=== PATIENT | male | born 1975 | race Two or more races ===

== ENCOUNTER 2019-05-07 20:29 | Emergency (ER) | payer MEDICAID, OTHER ==
[~2019-05-07] VITALS: Ht 162.6 cm; Wt 66.7 kg
[2019-05-08] MEDS ORDERED: FLUORESCEIN SOD 1 MG TEST STRIP RIGHTEYE ONE
[2019-05-08] MEDS ORDERED: TETRACAINE HCL 0.5% OPTH(EYE) SOLN 4ML RIGHTEYE ONE
[2019-05-08 00:10] VITALS: BP 136/86
== END 2019-05-08 00:46 | disposition home or self-care (01) ==
LOC: ER 20:31
DX: T15.02XA Foreign body in cornea, left eye, initial encounter (principal); H16.002 Unspecified corneal ulcer, left eye; H44.3 Other and unspecified degenerative disorders of globe; F17.210 Nicotine dependence, cigarettes, uncomplicated; X58.XXXA Exposure to other specified factors, initial encounter; Y93.89 Activity, other specified; Y92.89 Other specified places as the place of occurrence of the external cause; Y99.8 Other external cause status
CPT/HCPCS: 65222

== ENCOUNTER 2019-06-29 13:14 | Emergency (ER) | payer MEDICAID ==
[~2019-06-29] VITALS: Ht 167.6 cm; Wt 65.8 kg
[2019-06-29 13:24] VITALS: BP 111/71
[2019-06-29] MEDS ORDERED: TETRACAINE HCL 0.5% OPTH(EYE) SOLN 4ML EACHEYE ONE (14:00)
[2019-06-29] MEDS ORDERED: TETRACAINE HCL 0.5% OPTH(EYE) SOLN 4ML ONE (14:00)
[2019-06-29] MEDS ORDERED: CYCLOPENTOLATE HCL 1% OPTH(EYE) SOL 2ML EACHEYE ONE (14:00)
[2019-06-29] MEDS ORDERED: FLUORESCEIN SOD 1 MG TEST STRIP OP ONE (14:00)
== END 2019-06-29 14:22 | disposition home or self-care (01) ==
LOC: ER 13:14
DX: H16.133 Photokeratitis, bilateral (principal); F17.200 Nicotine dependence, unspecified, uncomplicated

== ENCOUNTER 2020-02-19 14:01 | Emergency (ER) | payer MEDICAID ==
[~2020-02-19] VITALS: Ht 167.6 cm; Wt 65.8 kg
[2020-02-19] MEDS ORDERED: FLUORESCEIN SOD 1 MG TEST STRIP LEFTEYE ONE (16:15)
[2020-02-19] MEDS ORDERED: TETRACAINE HCL 0.5% OPTH(EYE) SOLN 4ML LEFTEYE ONE (16:15)
[2020-02-19 16:39] VITALS: BP 127/86
== END 2020-02-19 16:44 | disposition home or self-care (01) ==
LOC: ER 14:01
DX: T15.02XA Foreign body in cornea, left eye, initial encounter (principal); F17.200 Nicotine dependence, unspecified, uncomplicated; X58.XXXA Exposure to other specified factors, initial encounter; Y93.89 Activity, other specified; Y92.89 Other specified places as the place of occurrence of the external cause; Y99.8 Other external cause status
CPT/HCPCS: 65222

== ENCOUNTER 2020-05-30 12:10 | Emergency (ER) | payer MEDICAID ==
[~2020-05-30] VITALS: Ht 165.1 cm; Wt 65.8 kg
[2020-05-30 13:36] LABS: Basophils # (auto) 0 10 ^3/uL (0-0.2); Basophils % (auto) 0.3 % (0.0-2.0); Eosinophils # (auto) 0.1 10 ^3/uL (0-0.8); Eosinophils % (auto) 0.8 % (0.0-7.0); Hematocrit 44.8 % (41.0-53.0); Hemoglobin 15.7 g/dL (13.5-17.5); Lymphocytes # (auto) 0.9 10 ^3/uL (0.4-5.4); Lymphocytes % (auto) 8.2 % (10.0-50.0); Mean Corpuscular Hemoglobin 32.9 pg (28.0-32.0); Mean Corpuscular Hgb Conc. 35.1 g/dL (32.0-36.0); Mean Corpuscular Volume 93.7 fL (80.0-100.0); Monocytes # (auto) 0.9 10 ^3/uL (0-1.3); Monocytes % (auto) 7.9 % (0.0-12.0); Neutrophils # (auto) 9.2 10 ^3/uL (1.6-8.6); Neutrophils % (auto) 82.8 % (37.0-80.0); Nucleated Red Blood Cells % 0.1 %; Platelet Count (auto) 313 10^3/uL (140-450); Red Blood Cells 4.78 10^6/uL (4.5-5.90); Red Cell Distribution Width 14.1 % (11.8-14.3); White Blood Cell 11.1 10^3/uL (4.4-10.8)
[2020-05-30 13:57] LABS: Calcium 9.6 mg/dL (8.5-10.1)
[2020-05-30 14:02] LABS: Bilirubin, Total 0.6 mg/dL (0.2-1.0); Total Protein 8.3 g/dL (6.4-8.2)
[2020-05-30] MEDS ORDERED: KETOROLAC TROMETH 60MG/2ML VIAL IM ONE (17:15)
[2020-05-30 18:05] VITALS: BP 158/92
== END 2020-05-30 18:10 | disposition home or self-care (01) ==
LOC: ER 12:10
DX: S39.012A Strain of muscle, fascia and tendon of lower back, initial encounter (principal); R16.0 Hepatomegaly, not elsewhere classified; K44.9 Diaphragmatic hernia without obstruction or gangrene; F10.10 Alcohol abuse, uncomplicated; X58.XXXA Exposure to other specified factors, initial encounter; Y93.89 Activity, other specified; Y92.89 Other specified places as the place of occurrence of the external cause; Y99.8 Other external cause status
CPT/HCPCS: 36415; 74176; 80053; 82150; 83690; 85025; 96372; 99284; J1885

== ENCOUNTER 2021-10-21 17:41 | Emergency (ER) | payer MEDICAID ==
[~2021-10-21] VITALS: Ht 162.6 cm; Wt 65.8 kg
[2021-10-21 18:10] VITALS: BP 110/83
== END 2021-10-22 00:01 | disposition home or self-care (01) ==
LOC: ER 17:41
DX: R06.00 Dyspnea, unspecified (principal); F15.10 Other stimulant abuse, uncomplicated; F17.210 Nicotine dependence, cigarettes, uncomplicated
CPT/HCPCS: 93005

== ENCOUNTER 2021-10-29 17:47 | Inpatient (IN) | payer MEDICAID ==
[~2021-10-29] VITALS: Ht 165.1 cm; Wt 66.4 kg
[2021-10-29] MEDS ORDERED: FUROSEMIDE 40 MG/4 ML VIAL IV ONE (19:15)
[2021-10-29 19:37] LABS: Basophils # (auto) 0 10 ^3/uL (0-0.2); Basophils % (auto) 0.4 % (0.0-2.0); Eosinophils # (auto) 0.1 10 ^3/uL (0-0.8); Eosinophils % (auto) 0.8 % (0.0-7.0); Hematocrit 46.1 % (41.0-53.0); Hemoglobin 14.7 g/dL (13.5-17.5); Lymphocytes # (auto) 0.9 10 ^3/uL (0.4-5.4); Lymphocytes % (auto) 11.3 % (10.0-50.0); Mean Corpuscular Hemoglobin 29.6 pg (28.0-32.0); Mean Corpuscular Hgb Conc. 31.9 g/dL (32.0-36.0); Mean Corpuscular Volume 92.9 fL (80.0-100.0); Monocytes # (auto) 0.7 10 ^3/uL (0-1.3); Monocytes % (auto) 8.1 % (0.0-12.0); Neutrophils # (auto) 6.6 10 ^3/uL (1.6-8.6); Neutrophils % (auto) 79.4 % (37.0-80.0); Red Blood Cells 4.96 10^6/uL (4.5-5.90); Red Cell Distribution Width 14.5 % (11.8-14.3); White Blood Cell 8.3 10^3/uL (4.4-10.8)
[2021-10-29 19:56] LABS: Albumin 3.2 g/dL (3.4-5.0); Calcium 8.7 mg/dL (8.5-10.1); Magnesium 2.3 mg/dL (1.6-2.6); Potassium 4.3 mmol/L (3.5-5.1)
[2021-10-29 20:00] LABS: BUN/Creatinine Ratio 15.7; Bilirubin, Total 0.9 mg/dL (0.2-1.0); Total Protein 7.5 g/dL (6.4-8.2)
[2021-10-29] MEDS ORDERED: IOHEXOL 350 MG/ML 100ML IJ ONE (20:27)
[2021-10-29] MEDS ORDERED: ONDANSETRON HCL 4 MG/2 ML VIAL IV PRN (22:30)
[2021-10-29] MEDS ORDERED: TEMAZEPAM 15 MG CAP PO PRN (22:30)
[2021-10-29] MEDS ORDERED: MORPHINE SULFATE INJ 2 MG/ml SYRG IV PRN (22:30)
[2021-10-29] MEDS ORDERED: NITROGLYCERIN 0.4 MG SL TAB SL PRN (22:30)
[2021-10-30] VITALS (8 sets, daily range): BP systolic 98–158; BP diastolic 64–92
[2021-10-30] MEDS: CARVEDILOL 3.125 MG TAB PO SCH ×3 (01:15→23:02)
[2021-10-30] MEDS: ATORVASTATIN 20 MG TAB PO SCH ×2 (01:15→23:04)
[2021-10-30 05:26] LABS: Basophils # (auto) 0 10 ^3/uL (0-0.2); Basophils % (auto) 0.4 % (0.0-2.0); Eosinophils # (auto) 0.1 10 ^3/uL (0-0.8); Eosinophils % (auto) 1.2 % (0.0-7.0); Hematocrit 40.9 % (41.0-53.0); Hemoglobin 13.3 g/dL (13.5-17.5); Lymphocytes # (auto) 0.8 10 ^3/uL (0.4-5.4); Lymphocytes % (auto) 11.6 % (10.0-50.0); Mean Corpuscular Hemoglobin 30.1 pg (28.0-32.0); Mean Corpuscular Hgb Conc. 32.5 g/dL (32.0-36.0); Mean Corpuscular Volume 92.5 fL (80.0-100.0); Monocytes # (auto) 0.6 10 ^3/uL (0-1.3); Monocytes % (auto) 9.3 % (0.0-12.0); Neutrophils # (auto) 5.3 10 ^3/uL (1.6-8.6); Neutrophils % (auto) 77.5 % (37.0-80.0); Red Blood Cells 4.42 10^6/uL (4.5-5.90); Red Cell Distribution Width 14.5 % (11.8-14.3); White Blood Cell 6.8 10^3/uL (4.4-10.8)
[2021-10-30 05:45] LABS: Albumin 2.7 g/dL (3.4-5.0); BUN/Creatinine Ratio 16.9; Calcium 7.9 mg/dL (8.5-10.1); Potassium 3.5 mmol/L (3.5-5.1)
[2021-10-30 05:47] LABS: Bilirubin, Total 0.7 mg/dL (0.2-1.0); Total Protein 6.3 g/dL (6.4-8.2)
[2021-10-30 05:52] LABS: Urine WBC None Seen /hpf (0 - 3)
[2021-10-30] MEDS ORDERED: FUROSEMIDE 20 MG TAB PO SCH (06:00)
[2021-10-30 06:32] LABS: Urine Bacteria FEW /hpf (None Seen); Urine Blood Negative /uL (Negative); Urine Specific Gravity 1.007 (1.001-1.035)
[2021-10-30] MEDS: PANTOPRAZOLE 40 MG TAB PO SCH (11:13)
[2021-10-30] MEDS: ASPirin 81 mg TAB PO SCH (11:13)
[2021-10-30] MEDS: ENOXAPARIN SOD 40 MG/0.4 ML SYRINGE SC SCH (11:13)
[2021-10-30] MEDS ORDERED: FUROSEMIDE 40 MG/4 ML VIAL IV ONE (11:30)
[2021-10-30 12:21] LABS: Cholesterol 99 mg/dL (< 200); HDL Cholesterol 33 mg/dL (40-59); LDL Cholesterol 65 mg/dL (< 100); Triglycerides 54 mg/dL (< 150)
[2021-10-30] MEDS: chlordiazePOXIDE HCL 25 MG CAP PO SCH ×3 (15:54→23:44)
[2021-10-30 17:16] LABS: Alcohol, Urine < 3.0 mg/dL (0-10); Amphetamine Screen, Urine NEGATIVE (NEGATIVE); Barbiturate Scree,Urine NEGATIVE (NEGATIVE); Benzodiazephine Screen, Urine NEGATIVE (NEGATIVE); Cannabinoid Screen, Urine NEGATIVE (NEGATIVE); Cocaine Screen, Urine NEGATIVE (NEGATIVE); Opiate Scree,Urine NEGATIVE (NEGATIVE); Phencyclidine Screen, Urine NEGATIVE (NEGATIVE)
[2021-10-30] MEDS: FUROSEMIDE 40 MG/4 ML VIAL IV SCH (18:00)
[2021-10-30] MEDS: FOLIC ACID 1 MG, MULTIPLE VITAMIN 10 ML, MAGNESIUM SULF SDV 50% 8 MEQ, THIAMINE INJ 100... INJ SCH ×5 (18:35)
[2021-10-31 05:00] VITALS: BP 108/70
[2021-10-31] MEDS: FUROSEMIDE 40 MG/4 ML VIAL IV SCH ×2 (06:33→18:00)
[2021-10-31] MEDS: chlordiazePOXIDE HCL 25 MG CAP PO SCH ×3 (06:35→18:14)
[2021-10-31 08:00] VITALS: BP 112/84
[2021-10-31 09:00] VITALS: BP 112/84
[2021-10-31] MEDS: ASPirin 81 mg TAB PO SCH (09:15)
[2021-10-31] MEDS: ENOXAPARIN SOD 40 MG/0.4 ML SYRINGE SC SCH (09:15)
[2021-10-31] MEDS: PANTOPRAZOLE 40 MG TAB PO SCH (09:15)
[2021-10-31] MEDS: CARVEDILOL 3.125 MG TAB PO SCH ×2 (09:15→21:53)
[2021-10-31] MEDS ORDERED: LISINOPRIL 20 MG TAB PO ONE (11:00)
[2021-10-31] MEDS: FOLIC ACID 1 MG, MULTIPLE VITAMIN 10 ML, MAGNESIUM SULF SDV 50% 8 MEQ, THIAMINE INJ 100... INJ SCH ×5 (12:36)
[2021-10-31 13:00] VITALS: BP 117/84
[2021-10-31 16:33] VITALS: BP 95/69
[2021-10-31 16:44] LABS: INR 1.26 (0.9-1.15); Partial Thromboplastin Time 29.1 sec (23.6-33.0)
[2021-10-31] MEDS: ATORVASTATIN 20 MG TAB PO SCH (21:53)
[2021-10-31 22:00] VITALS: BP 107/72
[2021-11-01] VITALS (11 sets, daily range): BP systolic 84–132; BP diastolic 60–89
[2021-11-01] MEDS: chlordiazePOXIDE HCL 25 MG CAP PO SCH ×5 (00:39→23:12)
[2021-11-01] MEDS: FUROSEMIDE 40 MG/4 ML VIAL IV SCH ×2 (05:53→18:15)
[2021-11-01] MEDS: ENOXAPARIN SOD 40 MG/0.4 ML SYRINGE SC SCH (08:15)
[2021-11-01] MEDS: ASPirin 81 mg TAB PO SCH (09:42)
[2021-11-01] MEDS: CARVEDILOL 3.125 MG TAB PO SCH ×2 (09:48→22:45)
[2021-11-01] MEDS: DAPAGLIFLOZIN 5 MG TAB PO SCH (09:49)
[2021-11-01] MEDS: LISINOPRIL 20 MG TAB PO SCH (09:50)
[2021-11-01] MEDS: PANTOPRAZOLE 40 MG TAB PO SCH (09:51)
[2021-11-01] MEDS: FOLIC ACID 1 MG, MULTIPLE VITAMIN 10 ML, MAGNESIUM SULF SDV 50% 8 MEQ, THIAMINE INJ 100... INJ SCH ×5 (12:00)
[2021-11-01] MEDS ORDERED: ANGIOMAX 250 MG VIAL IV ONE (15:14)
[2021-11-01] MEDS ORDERED: fentaNYL CITRATE 100 MCG/2 ML VL ONE (15:15)
[2021-11-01] MEDS ORDERED: MIDAZOLAM HCL 2MG/2ML 2ml VIAL (1mg/ml) ONE (15:15)
[2021-11-01] MEDS ORDERED: SODIUM CHL 0.9% 0 ML ONE (15:15)
[2021-11-01] MEDS ORDERED: LIDOCAINE 2%HCL (LOCAL ANESTH.) INJ 10ml MDV ONE (15:16)
[2021-11-01] MEDS ORDERED: DOBUTamine 1000MCG/ML 250 ML IV ONE (15:38)
[2021-11-01] MEDS ORDERED: ALBUMIN 5% 50 ML IV ONE ×2 (15:45→18:45)
[2021-11-01] MEDS: ALBUMIN 5% 50 ML IV ONE ×2 (15:45→20:33)
[2021-11-01] MEDS ORDERED: DOBUTamine 1000MCG/ML 250 ML IV SCH (15:45)
[2021-11-01] MEDS: ATORVASTATIN 20 MG TAB PO SCH (22:45)
[2021-11-01] MEDS: IVABRADINE 5 MG TAB PO SCH (22:45)
[2021-11-02 05:00] VITALS: BP 98/68
[2021-11-02] MEDS: FUROSEMIDE 40 MG/4 ML VIAL IV SCH ×2 (06:00→17:46)
[2021-11-02] MEDS: chlordiazePOXIDE HCL 25 MG CAP PO SCH ×3 (06:13→17:47)
[2021-11-02 07:30] VITALS: BP 99/71
[2021-11-02] MEDS: DAPAGLIFLOZIN 5 MG TAB PO SCH (08:23)
[2021-11-02] MEDS: ASPirin 81 mg TAB PO SCH (08:23)
[2021-11-02] MEDS: CARVEDILOL 3.125 MG TAB PO SCH ×2 (08:25→22:46)
[2021-11-02] MEDS: LISINOPRIL 20 MG TAB PO SCH (08:26)
[2021-11-02] MEDS: PANTOPRAZOLE 40 MG TAB PO SCH (08:26)
[2021-11-02] MEDS: IVABRADINE 5 MG TAB PO SCH (08:26)
[2021-11-02] MEDS: ENOXAPARIN SOD 40 MG/0.4 ML SYRINGE SC SCH (08:28)
[2021-11-02 09:08] VITALS: BP 99/71
[2021-11-02 13:00] VITALS: BP 100/76
[2021-11-02] MEDS: FOLIC ACID 1 MG, MULTIPLE VITAMIN 10 ML, MAGNESIUM SULF SDV 50% 8 MEQ, THIAMINE INJ 100... INJ SCH ×5 (13:36)
[2021-11-02 17:00] VITALS: BP 108/79
[2021-11-02 22:00] VITALS: BP 103/69
[2021-11-02] MEDS: ATORVASTATIN 20 MG TAB PO SCH (22:47)
[2021-11-03] MEDS: IVABRADINE 5 MG TAB PO SCH ×3 (00:03→22:21)
[2021-11-03] MEDS: chlordiazePOXIDE HCL 25 MG CAP PO SCH ×4 (00:49→18:22)
[2021-11-03 05:00] VITALS: BP 100/70
[2021-11-03] MEDS: FUROSEMIDE 40 MG/4 ML VIAL IV SCH ×2 (06:00→18:00)
[2021-11-03 08:00] VITALS: BP 105/76
[2021-11-03 09:00] VITALS: BP 105/76
[2021-11-03] MEDS: ASPirin 81 mg TAB PO SCH (10:13)
[2021-11-03] MEDS: PANTOPRAZOLE 40 MG TAB PO SCH (10:14)
[2021-11-03] MEDS: DAPAGLIFLOZIN 5 MG TAB PO SCH (10:14)
[2021-11-03] MEDS: LISINOPRIL 20 MG TAB PO SCH (10:15)
[2021-11-03] MEDS: ENOXAPARIN SOD 40 MG/0.4 ML SYRINGE SC SCH (10:16)
[2021-11-03] MEDS: CARVEDILOL 3.125 MG TAB PO SCH ×2 (10:24→22:21)
[2021-11-03] MEDS: FOLIC ACID 1 MG, MULTIPLE VITAMIN 10 ML, MAGNESIUM SULF SDV 50% 8 MEQ, THIAMINE INJ 100... INJ SCH ×5 (12:39)
[2021-11-03 13:00] VITALS: BP 97/57
[2021-11-03 17:00] VITALS: BP 96/69
[2021-11-03 21:37] VITALS: BP 120/86
[2021-11-03] MEDS: ATORVASTATIN 20 MG TAB PO SCH (22:21)
[2021-11-04] MEDS: chlordiazePOXIDE HCL 25 MG CAP PO SCH ×4 (00:26→16:37)
[2021-11-04 04:55] VITALS: BP 95/62
[2021-11-04] MEDS: FUROSEMIDE 40 MG/4 ML VIAL IV SCH ×2 (05:35→16:37)
[2021-11-04 09:00] VITALS: BP 100/67
[2021-11-04] MEDS: ASPirin 81 mg TAB PO SCH (10:01)
[2021-11-04] MEDS: CARVEDILOL 3.125 MG TAB PO SCH ×2 (10:02→22:43)
[2021-11-04] MEDS: DAPAGLIFLOZIN 5 MG TAB PO SCH (10:02)
[2021-11-04] MEDS: PANTOPRAZOLE 40 MG TAB PO SCH (10:02)
[2021-11-04] MEDS: LISINOPRIL 20 MG TAB PO SCH (10:03)
[2021-11-04] MEDS: ENOXAPARIN SOD 40 MG/0.4 ML SYRINGE SC SCH (10:03)
[2021-11-04] MEDS: IVABRADINE 5 MG TAB PO SCH ×2 (10:04→22:43)
[2021-11-04 13:00] VITALS: BP 110/72
[2021-11-04 17:00] VITALS: BP 109/79
[2021-11-04 22:00] VITALS: BP 111/82
[2021-11-04] MEDS: ATORVASTATIN 20 MG TAB PO SCH (22:43)
[2021-11-05] MEDS: chlordiazePOXIDE HCL 25 MG CAP PO SCH ×4 (00:15→17:34)
[2021-11-05 05:00] VITALS: BP 85/49
[2021-11-05] MEDS: FUROSEMIDE 40 MG/4 ML VIAL IV SCH ×2 (06:00→17:34)
[2021-11-05 09:00] VITALS: BP 110/62
[2021-11-05] MEDS: CARVEDILOL 3.125 MG TAB PO SCH ×2 (10:00→20:27)
[2021-11-05] MEDS: LISINOPRIL 20 MG TAB PO SCH (10:00)
[2021-11-05] MEDS: PANTOPRAZOLE 40 MG TAB PO SCH (10:25)
[2021-11-05] MEDS: IVABRADINE 5 MG TAB PO SCH ×2 (10:25→20:27)
[2021-11-05] MEDS: ASPirin 81 mg TAB PO SCH (10:25)
[2021-11-05] MEDS: DAPAGLIFLOZIN 5 MG TAB PO SCH (10:26)
[2021-11-05] MEDS: ENOXAPARIN SOD 40 MG/0.4 ML SYRINGE SC SCH (10:35)
[2021-11-05 13:00] VITALS: BP_SYST 101; BP_SYST 89; BP_DIAS 53; BP_DIAS 66
[2021-11-05 16:11] VITALS: BP 90/57
[2021-11-05] MEDS: ATORVASTATIN 20 MG TAB PO SCH (20:28)
[2021-11-05 22:16] VITALS: BP 93/61
[2021-11-06] MEDS: chlordiazePOXIDE HCL 25 MG CAP PO SCH ×4 (00:23→17:13)
[2021-11-06] MEDS: FUROSEMIDE 40 MG/4 ML VIAL IV SCH ×2 (05:01→17:12)
[2021-11-06 05:07] VITALS: BP 93/56
[2021-11-06] MEDS: ACETAMINOPHEN 325 MG TAB PO PRN (07:13)
[2021-11-06 07:51] LABS: Basophils # (auto) 0.1 10 ^3/uL (0-0.2); Basophils % (auto) 0.7 % (0.0-2.0); Eosinophils # (auto) 0.2 10 ^3/uL (0-0.8); Eosinophils % (auto) 2.8 % (0.0-7.0); Hematocrit 45.3 % (41.0-53.0); Hemoglobin 14.7 g/dL (13.5-17.5); Lymphocytes # (auto) 0.8 10 ^3/uL (0.4-5.4); Lymphocytes % (auto) 12.2 % (10.0-50.0); Mean Corpuscular Hemoglobin 29.5 pg (28.0-32.0); Mean Corpuscular Hgb Conc. 32.4 g/dL (32.0-36.0); Mean Corpuscular Volume 91.1 fL (80.0-100.0); Monocytes # (auto) 0.9 10 ^3/uL (0-1.3); Monocytes % (auto) 12.9 % (0.0-12.0); Neutrophils # (auto) 4.9 10 ^3/uL (1.6-8.6); Neutrophils % (auto) 71.4 % (37.0-80.0); Red Blood Cells 4.97 10^6/uL (4.5-5.90); Red Cell Distribution Width 14.8 % (11.8-14.3); White Blood Cell 6.9 10^3/uL (4.4-10.8)
[2021-11-06 08:07] LABS: Albumin 3.4 g/dL (3.4-5.0); Calcium 9.2 mg/dL (8.5-10.1); Potassium 4.1 mmol/L (3.5-5.1)
[2021-11-06 08:10] LABS: Bilirubin, Total 0.4 mg/dL (0.2-1.0); Total Protein 7.4 g/dL (6.4-8.2)
[2021-11-06 08:14] LABS: INR 1.18 (0.9-1.15); Partial Thromboplastin Time 28.8 sec (23.6-33.0)
[2021-11-06 09:00] VITALS: BP 93/49
[2021-11-06] MEDS: ENOXAPARIN SOD 40 MG/0.4 ML SYRINGE SC SCH (10:00)
[2021-11-06] MEDS: CARVEDILOL 3.125 MG TAB PO SCH ×2 (10:00→21:09)
[2021-11-06] MEDS: LISINOPRIL 20 MG TAB PO SCH (10:00)
[2021-11-06] MEDS: ASPirin 81 mg TAB PO SCH (10:02)
[2021-11-06] MEDS: IVABRADINE 5 MG TAB PO SCH ×2 (10:04→21:09)
[2021-11-06] MEDS: DAPAGLIFLOZIN 5 MG TAB PO SCH (10:08)
[2021-11-06] MEDS: PANTOPRAZOLE 40 MG TAB PO SCH (10:08)
[2021-11-06] MEDS: FOLIC ACID 1 MG, MULTIPLE VITAMIN 10 ML, MAGNESIUM SULF SDV 50% 8 MEQ, THIAMINE INJ 100... INJ SCH ×10 (12:00→19:00)
[2021-11-06] MEDS ORDERED: VANCOMYCIN HCL 1000 MG VL ONE ×2 (13:48→14:18)
[2021-11-06] MEDS ORDERED: fentaNYL CITRATE 100 MCG/2 ML VL ONE (13:48)
[2021-11-06] MEDS ORDERED: LIDOCAINE 2%HCL (LOCAL ANESTH.) INJ 10ml MDV ONE (13:49)
[2021-11-06] MEDS ORDERED: MIDAZOLAM HCL 2MG/2ML 2ml VIAL (1mg/ml) ONE (13:49)
[2021-11-06] MEDS ORDERED: VANCOMYCIN 1GM/250ML 250 ML IV ONE (14:24)
[2021-11-06] MEDS ORDERED: FUROSEMIDE 20 MG/2 ML VIAL ONE (15:25)
[2021-11-06 17:00] VITALS: BP 104/78
[2021-11-06 20:00] VITALS: BP 106/64
[2021-11-06 20:30] VITALS: BP 104/78
[2021-11-06] MEDS: ATORVASTATIN 20 MG TAB PO SCH (21:09)
[2021-11-06 21:50] VITALS: BP 95/67
[2021-11-06] MEDS: VANCOMYCIN 1GM/250ML 250 ML IV SCH (21:57)
[2021-11-07] MEDS: FUROSEMIDE 40 MG/4 ML VIAL IV SCH (04:38)
[2021-11-07 05:00] VITALS: BP 92/54
[2021-11-07] MEDS: chlordiazePOXIDE HCL 25 MG CAP PO SCH ×3 (06:00→12:00)
[2021-11-07] MEDS: VANCOMYCIN 1GM/250ML 250 ML IV SCH (08:26)
[2021-11-07] MEDS: PANTOPRAZOLE 40 MG TAB PO SCH (08:26)
[2021-11-07] MEDS: DAPAGLIFLOZIN 5 MG TAB PO SCH (08:26)
[2021-11-07] MEDS: ASPirin 81 mg TAB PO SCH (08:26)
[2021-11-07 08:35] VITALS: BP 100/58
[2021-11-07] MEDS: ACETAMINOPHEN 325 MG TAB PO PRN (09:19)
[2021-11-07] MEDS: IVABRADINE 5 MG TAB PO SCH (09:19)
[2021-11-07] MEDS: ENOXAPARIN SOD 40 MG/0.4 ML SYRINGE SC SCH (09:22)
[2021-11-07] MEDS: CARVEDILOL 3.125 MG TAB PO SCH (09:22)
[2021-11-07] MEDS: LISINOPRIL 20 MG TAB PO SCH (09:22)
[2021-11-07] MEDS ORDERED: ASPI-498 PO (10:32)
[2021-11-07] MEDS ORDERED: POTA10TA51 PO (10:32)
[2021-11-07] MEDS ORDERED: DAPA1TAB4 PO (10:32)
[2021-11-07] MEDS ORDERED: FURO1TAB31 PO (10:32)
[2021-11-07] MEDS ORDERED: CAR3125T PO (10:32)
[2021-11-07] MEDS ORDERED: IVAB1.7T PO (10:32)
[2021-11-07] MEDS ORDERED: LISI-716 PO (10:32)
[2021-11-07 11:23] VITALS: BP 100/58
[2021-11-07] MEDS: FOLIC ACID 1 MG, MULTIPLE VITAMIN 10 ML, MAGNESIUM SULF SDV 50% 8 MEQ, THIAMINE INJ 100... INJ SCH ×5 (12:00)
[2021-11-07 12:46] VITALS: BP 101/69
== END 2021-11-07 14:00 | disposition home or self-care (01) | DRG 179 ==
LOC: ER 17:47 → TELE 22:27 → TELE-WESTW 23:46
PROVIDERS: ADMIT Nurse Practitioner; ATTEND Family Medicine
PROC: 4A023N7 Measurement of Cardiac Sampling and Pressure, Left Heart, Percutaneous Approach (ICD-10-PCS; 2021-11-05)
PROC: B2111ZZ Fluoroscopy of Multiple Coronary Arteries using Low Osmolar Contrast (ICD-10-PCS; 2021-11-05)
PROC: B2151ZZ Fluoroscopy of Left Heart using Low Osmolar Contrast (ICD-10-PCS; 2021-11-05)
PROC: B41F1ZZ Fluoroscopy of Right Lower Extremity Arteries using Low Osmolar Contrast (ICD-10-PCS; 2021-11-05)
PROC: 02H63KZ Insertion of Defibrillator Lead into Right Atrium, Percutaneous Approach (ICD-10-PCS; principal; 2021-11-06)
PROC: 0JH609Z Insertion of Cardiac Resynchronization Defibrillator Pulse Generator into Chest Subcutaneous Tissue and Fascia, Open Approach (ICD-10-PCS; 2021-11-06)
PROC: 02HL3KZ Insertion of Defibrillator Lead into Left Ventricle, Percutaneous Approach (ICD-10-PCS; 2021-11-06)
PROC: 02HK3KZ Insertion of Defibrillator Lead into Right Ventricle, Percutaneous Approach (ICD-10-PCS; 2021-11-06)
DX: I11.0 Hypertensive heart disease with heart failure (principal); J96.01 Acute respiratory failure with hypoxia; J18.9 Pneumonia, unspecified organism; I42.0 Dilated cardiomyopathy; I45.89 Other specified conduction disorders; I50.43 Acute on chronic combined systolic (congestive) and diastolic (congestive) heart failure; F15.10 Other stimulant abuse, uncomplicated; F17.210 Nicotine dependence, cigarettes, uncomplicated; Z20.822 Contact with and (suspected) exposure to COVID-19; F10.10 Alcohol abuse, uncomplicated; Y90.9 Presence of alcohol in blood, level not specified; Z71.41 Alcohol abuse counseling and surveillance of alcoholic
CPT/HCPCS: 33225; 33249; 36415; 71045; 71046; 71275; 75710; 80053; 80061; 80307; 81001; 83605; 83735; 83880; 84484; 85025; 85379; 85610; 85730; 86850; 86900; 86901; 87040; 93005; 93306; 93458; 93970; 96374; 99152; 99153; 99291; C1882; G0378; J2001; J2250

== ENCOUNTER → 2022-05-26 | Outpatient (CLI) | payer MEDICAID ==
[~2022-05-26] MED LIST: ASPI-498 PO; CAR3125T PO; DAPA1TAB4 PO; FURO1TAB31 PO; IVAB1.7T PO; LISI-716 PO; POTA10TA51 PO
== END | disposition home or self-care (01) ==
LOC: Rad HDHVI 15:17
PROVIDERS: ATTEND Internal Medicine Cardiovascular Disease
DX: I08.1 Rheumatic disorders of both mitral and tricuspid valves (principal); I11.0 Hypertensive heart disease with heart failure; I50.31 Acute diastolic (congestive) heart failure
CPT/HCPCS: 93306

== ENCOUNTER 2022-08-26 13:51 | Emergency (ER) | payer MEDICAID ==
[~2022-08-26] VITALS: Ht 175.3 cm; Wt 76.0 kg
[2022-08-26] MEDS ORDERED: ASPirin 81 mg TAB PO ONE (14:15)
[2022-08-26] MEDS ORDERED: ADENOSINE 6 MG/2 ML INJ IV ONE (14:15)
[2022-08-26] MEDS ORDERED: METOPROLOL SUCCINATE XL 50 MG TAB PO ONE (14:30)
[2022-08-26 14:46] LABS: Basophils # (auto) 0 10 ^3/uL (0-0.2); Basophils % (auto) 0.4 % (0.0-2.0); Eosinophils # (auto) 0.1 10 ^3/uL (0-0.8); Eosinophils % (auto) 1.7 % (0.0-7.0); Hematocrit 45.8 % (41.0-53.0); Hemoglobin 15.3 g/dL (13.5-17.5); Lymphocytes # (auto) 2.4 10 ^3/uL (0.4-5.4); Lymphocytes % (auto) 34.1 % (10.0-50.0); Mean Corpuscular Hemoglobin 31.6 pg (28.0-32.0); Mean Corpuscular Hgb Conc. 33.4 g/dL (32.0-36.0); Mean Corpuscular Volume 94.6 fL (80.0-100.0); Monocytes # (auto) 0.5 10 ^3/uL (0-1.3); Monocytes % (auto) 6.8 % (0.0-12.0); Nucleated Red Blood Cells % 0.2 %; Red Blood Cells 4.85 10^6/uL (4.5-5.90); Red Cell Distribution Width 15.3 % (11.8-14.3); White Blood Cell 7.1 10^3/uL (4.4-10.8)
[2022-08-26 15:06] LABS: Albumin 4.1 g/dL (3.4-5.0); Calcium 8.9 mg/dL (8.5-10.1); Potassium 4.4 mmol/L (3.5-5.1)
[2022-08-26 15:09] LABS: BUN/Creatinine Ratio 13.7 (10.0-20.0); Bilirubin, Total 0.4 mg/dL (0.2-1.0); Total Protein 8.3 g/dL (6.4-8.2)
[2022-08-26 16:56] LABS: Amphetamine Screen, Urine POSITIVE (NEGATIVE); Barbiturate Scree,Urine NEGATIVE (NEGATIVE); Benzodiazephine Screen, Urine NEGATIVE (NEGATIVE); Cannabinoid Screen, Urine NEGATIVE (NEGATIVE); Cocaine Screen, Urine NEGATIVE (NEGATIVE)
[2022-08-26 17:09] LABS: Opiate Scree,Urine NEGATIVE (NEGATIVE); Phencyclidine Screen, Urine NEGATIVE (NEGATIVE)
[2022-08-26 19:38] VITALS: BP 144/94
[2022-08-27] MEDS ORDERED: ASPirin 81 mg TAB PO SCH (10:00)
== END 2022-08-26 19:46 | disposition left against medical advice (07) ==
LOC: ER 13:51
DX: I48.91 Unspecified atrial fibrillation (principal); R00.0 Tachycardia, unspecified; R00.2 Palpitations; E11.9 Type 2 diabetes mellitus without complications; I10 Essential (primary) hypertension; F17.210 Nicotine dependence, cigarettes, uncomplicated; F15.90 Other stimulant use, unspecified, uncomplicated; Z98.890 Other specified postprocedural states; Z95.810 Presence of automatic (implantable) cardiac defibrillator; Z79.899 Other long term (current) drug therapy
CPT/HCPCS: 36415; 71045; 80053; 80307; 83735; 83880; 84484; 85025; 93005; 99291; J0153

== ENCOUNTER 2022-09-03 05:32 | Inpatient (IN) | payer MEDICAID ==
[~2022-09-03] VITALS: Ht 165.1 cm; Wt 70.4 kg
[2022-09-03 05:55] LABS: Basophils # (auto) 0.1 10 ^3/uL (0-0.2); Basophils % (auto) 0.6 % (0.0-2.0); Eosinophils # (auto) 0 10 ^3/uL (0-0.8); Eosinophils % (auto) 0.4 % (0.0-7.0); Hematocrit 48.9 % (41.0-53.0); Hemoglobin 16.7 g/dL (13.5-17.5); Lymphocytes # (auto) 1.2 10 ^3/uL (0.4-5.4); Lymphocytes % (auto) 13.3 % (10.0-50.0); Mean Corpuscular Hemoglobin 32.2 pg (28.0-32.0); Mean Corpuscular Hgb Conc. 34.1 g/dL (32.0-36.0); Mean Corpuscular Volume 94.5 fL (80.0-100.0); Monocytes # (auto) 0.8 10 ^3/uL (0-1.3); Monocytes % (auto) 8.5 % (0.0-12.0); Neutrophils # (auto) 7.1 10 ^3/uL (1.6-8.6); Neutrophils % (auto) 77.2 % (37.0-80.0); Nucleated Red Blood Cells % 0.1 %; Red Blood Cells 5.18 10^6/uL (4.5-5.90); Red Cell Distribution Width 15.6 % (11.8-14.3); White Blood Cell 9.2 10^3/uL (4.4-10.8)
[2022-09-03 06:17] LABS: Albumin 4.3 g/dL (3.4-5.0); Calcium 9.8 mg/dL (8.5-10.1); Potassium 4.3 mmol/L (3.5-5.1)
[2022-09-03 06:21] LABS: BUN/Creatinine Ratio 14.3 (10.0-20.0); Bilirubin, Total 1.2 mg/dL (0.2-1.0); Total Protein 8.2 g/dL (6.4-8.2)
[2022-09-03] MEDS ORDERED: ASPirin 325 MG TAB PO ONE (09:30)
[2022-09-03] MEDS ORDERED: MORPHINE SULFATE INJ 2 MG/ml SYRG IV PRN (11:00)
[2022-09-03] MEDS ORDERED: ACETAMINOPHEN 325 MG TAB PO PRN (11:00)
[2022-09-03] MEDS ORDERED: NITROGLYCERIN 0.4 MG SL TAB SL PRN (11:00)
[2022-09-03] MEDS ORDERED: FOLIC ACID 1 MG TAB PO ONE (11:00)
[2022-09-03] MEDS ORDERED: ONDANSETRON HCL 4 MG/2 ML VIAL IV PRN (11:00)
[2022-09-03] MEDS ORDERED: THIAMINE HCL 100 MG TAB PO ONE (11:00)
[2022-09-03] MEDS ORDERED: LORazepam 2MG/ML-1ML VIAL IV PRN (11:00)
[2022-09-03] MEDS ORDERED: MAGNESIUM OXIDE 400 MG TAB PO ONE (11:00)
[2022-09-03] MEDS ORDERED: MULTIPLE VITAMIN TAB PO ONE (11:00)
[2022-09-03] MEDS ORDERED: DOCUSATE SOD 100 MG CAP PO PRN (11:00)
[2022-09-03] MEDS ORDERED: ATOR10TA52 PO (11:15)
[2022-09-03] MEDS: SODIUM CHLOR 0.9% PF (SALINE LOCK) 10ML VIAL/SYR IV SCH ×2 (15:16→22:23)
[2022-09-03] MEDS ORDERED: DEXTROSE (50%) 50ML SYRG IV PRN (16:45)
[2022-09-03 17:00] VITALS: BP 129/85
[2022-09-03] MEDS: InsuLIN REG 1unit/0.01ml Soln (100units/ml) SC SCH ×2 (17:00→22:00)
[2022-09-03] MEDS: ACCU-CHEK COMFORT CURVE STRIP VI SCH ×2 (17:50→22:19)
[2022-09-03 18:20] VITALS: BP 138/91
[2022-09-03 20:00] VITALS: BP 141/88
[2022-09-03 22:00] VITALS: BP 141/88
[2022-09-03] MEDS: ATORVASTATIN 20 MG TAB PO SCH (22:12)
[2022-09-03] MEDS: CARVEDILOL 3.125 MG TAB PO SCH (22:13)
[2022-09-03] MEDS: IVABRADINE 5 MG TAB PO SCH (22:19)
[2022-09-04] MEDS: HYDROcodone-ACET 5/325MG TAB PO PRN ×2 (04:51)
[2022-09-04 05:00] VITALS: BP 116/84
[2022-09-04] MEDS: SODIUM CHLOR 0.9% PF (SALINE LOCK) 10ML VIAL/SYR IV SCH ×3 (05:50→21:55)
[2022-09-04] MEDS: InsuLIN REG 1unit/0.01ml Soln (100units/ml) SC SCH ×4 (06:05→21:55)
[2022-09-04] MEDS: ACCU-CHEK COMFORT CURVE STRIP VI SCH ×4 (06:05→22:01)
[2022-09-04 06:11] LABS: Basophils # (auto) 0 10 ^3/uL (0-0.2); Basophils % (auto) 0.5 % (0.0-2.0); Eosinophils # (auto) 0.1 10 ^3/uL (0-0.8); Eosinophils % (auto) 1.9 % (0.0-7.0); Hemoglobin 16.5 g/dL (13.5-17.5); Lymphocytes # (auto) 1.4 10 ^3/uL (0.4-5.4); Lymphocytes % (auto) 18.2 % (10.0-50.0); Mean Corpuscular Hemoglobin 31.8 pg (28.0-32.0); Mean Corpuscular Hgb Conc. 33.7 g/dL (32.0-36.0); Mean Corpuscular Volume 94.5 fL (80.0-100.0); Monocytes # (auto) 1.1 10 ^3/uL (0-1.3); Monocytes % (auto) 14.3 % (0.0-12.0); Neutrophils % (auto) 65.1 % (37.0-80.0); Red Blood Cells 5.19 10^6/uL (4.5-5.90); Red Cell Distribution Width 15.6 % (11.8-14.3); White Blood Cell 7.6 10^3/uL (4.4-10.8)
[2022-09-04 06:23] LABS: Calcium 9.4 mg/dL (8.5-10.1); Potassium 3.9 mmol/L (3.5-5.1)
[2022-09-04 06:32] LABS: BUN/Creatinine Ratio 17.4 (10.0-20.0); Bilirubin, Total 0.9 mg/dL (0.2-1.0); Total Protein 8.2 g/dL (6.4-8.2)
[2022-09-04 08:00] VITALS: BP 134/81
[2022-09-04 09:00] VITALS: BP 144/95
[2022-09-04] MEDS: PANTOPRAZOLE 40 MG/10 ML VIAL INJ IV SCH (09:38)
[2022-09-04] MEDS: THIAMINE HCL 100 MG TAB PO SCH (09:38)
[2022-09-04] MEDS: MAGNESIUM OXIDE 400 MG TAB PO SCH (09:38)
[2022-09-04] MEDS: MULTIPLE VITAMIN TAB PO SCH (09:38)
[2022-09-04] MEDS: LISINOPRIL 10 MG TAB PO SCH (09:39)
[2022-09-04] MEDS: ASPirin-EC 81 mg tab PO SCH (09:39)
[2022-09-04] MEDS: FUROSEMIDE 40 MG TAB PO SCH (09:39)
[2022-09-04] MEDS: CARVEDILOL 3.125 MG TAB PO SCH (09:39)
[2022-09-04] MEDS ORDERED: METOPROLOL SUCCINATE XL 50 MG TAB PO SCH (10:00)
[2022-09-04] MEDS: FOLIC ACID 1 MG TAB PO SCH (10:03)
[2022-09-04] MEDS: Dapagliflozin Propanediol (Farxiga) 10 MG TABLET PO SCH (10:04)
[2022-09-04] MEDS: IVABRADINE 5 MG TAB PO SCH ×2 (10:04→22:00)
[2022-09-04 13:00] VITALS: BP 122/84
[2022-09-04] MEDS ORDERED: ALPRAZolam 0.25 MG TAB PO PRN (16:00)
[2022-09-04 17:00] VITALS: BP 139/88
[2022-09-04] MEDS: METOPROLOL SUCCINATE XL 50 MG TAB PO SCH (21:50)
[2022-09-04] MEDS: ATORVASTATIN 20 MG TAB PO SCH (21:50)
[2022-09-04 22:00] VITALS: BP 107/75
[2022-09-05] MEDS: HYDROcodone-ACET 5/325MG TAB PO PRN (04:56)
[2022-09-05 05:00] VITALS: BP 111/65
[2022-09-05] MEDS: InsuLIN REG 1unit/0.01ml Soln (100units/ml) SC SCH (06:02)
[2022-09-05] MEDS: ACCU-CHEK COMFORT CURVE STRIP VI SCH (06:03)
[2022-09-05] MEDS: SODIUM CHLOR 0.9% PF (SALINE LOCK) 10ML VIAL/SYR IV SCH (06:04)
[2022-09-05 08:00] VITALS: BP 134/81
[2022-09-05] MEDS ORDERED: MET50T PO (08:12)
[2022-09-05] MEDS ORDERED: TEMA15CA2 PO (08:24)
[2022-09-05 08:29] VITALS: BP 127/88
[2022-09-05 08:55] VITALS: BP 127/88
[2022-09-05] MEDS: PANTOPRAZOLE 40 MG/10 ML VIAL INJ IV SCH (09:05)
[2022-09-05] MEDS: MULTIPLE VITAMIN TAB PO SCH (09:06)
[2022-09-05] MEDS: ASPirin-EC 81 mg tab PO SCH (09:06)
[2022-09-05] MEDS: METOPROLOL SUCCINATE XL 50 MG TAB PO SCH (09:07)
[2022-09-05] MEDS: THIAMINE HCL 100 MG TAB PO SCH (09:07)
[2022-09-05] MEDS: FOLIC ACID 1 MG TAB PO SCH (09:07)
[2022-09-05] MEDS: MAGNESIUM OXIDE 400 MG TAB PO SCH (09:07)
[2022-09-05] MEDS: FUROSEMIDE 40 MG TAB PO SCH (09:07)
[2022-09-05] MEDS: LISINOPRIL 10 MG TAB PO SCH (09:08)
[2022-09-05] MEDS: IVABRADINE 5 MG TAB PO SCH (09:11)
[2022-09-05] MEDS: Dapagliflozin Propanediol (Farxiga) 10 MG TABLET PO SCH (09:12)
[2022-09-05] MEDS ORDERED: AMIODARONE HCL 200 MG TAB PO SCH (10:00)
== END 2022-09-05 10:30 | disposition home or self-care (01) | DRG 201 ==
LOC: ER 05:32 → TELE 11:15 → TELE-EAST 16:52
PROVIDERS: ADMIT Nurse Practitioner Family; ATTEND Nurse Practitioner Acute Care
DX: I47.1 Supraventricular tachycardia (principal); I24.9 Acute ischemic heart disease, unspecified; I50.42 Chronic combined systolic (congestive) and diastolic (congestive) heart failure; I11.0 Hypertensive heart disease with heart failure; E11.9 Type 2 diabetes mellitus without complications; E78.5 Hyperlipidemia, unspecified; F15.10 Other stimulant abuse, uncomplicated; F17.210 Nicotine dependence, cigarettes, uncomplicated; I48.91 Unspecified atrial fibrillation; Z95.810 Presence of automatic (implantable) cardiac defibrillator
CPT/HCPCS: 36415; 71045; 80053; 82306; 82962; 83880; 84484; 85025; 87081; 99291; C9113; G0378; J1815

== ENCOUNTER → 2022-10-14 | Outpatient (CLI) | payer MEDICAID ==
[~2022-10-14] VITALS: Ht 165.1 cm; Wt 65.8 kg
[~2022-10-14] MED LIST changes: +ATOR10TA52 PO; -CAR3125T PO; -LISI-716 PO; +LISI10TA34 PO; +MET50T PO; +TEMA15CA2 PO
== END | disposition home or self-care (01) ==
LOC: Rad HDHVI 09:30
PROVIDERS: ATTEND Internal Medicine Cardiovascular Disease
DX: I11.0 Hypertensive heart disease with heart failure (principal); I50.43 Acute on chronic combined systolic (congestive) and diastolic (congestive) heart failure; I42.1 Obstructive hypertrophic cardiomyopathy; E11.65 Type 2 diabetes mellitus with hyperglycemia; I99.9 Unspecified disorder of circulatory system; Z95.810 Presence of automatic (implantable) cardiac defibrillator; Z79.899 Other long term (current) drug therapy
CPT/HCPCS: 78472; 96374; 96375; A9505